=== PATIENT | female | born 1960 | race African-American/Black ===

== ENCOUNTER 2017-04-22 13:30 | Inpatient (IN) | payer MEDICAID ==
[~2017-04-22] VITALS: Ht 167.6 cm; Wt 73.2 kg
[~2017-04-22 13:30] MED LIST: LITH150C PO
[2017-04-22 14:52] LABS: BASOPHILS % 0.4 % (0.0-2.0); EOSINOPHILS % 1.2 % (0.0-5.0); HEMATOCRIT. 38.7 % (36.0-48.0); LYMPHOCYTES % 21.7 % (20.0-50.0); MEAN CORPUSCULAR HEMOGLOBIN 29.9 pg (28.0-32.0); MEAN CORPUSCULAR VOLUME 96.5 fL (81.0-99.0); MEAN PLATELET VOLUME 7.7 fl (7.4-10.4); MONOCYTES % 5.8 % (2.0-8.0); NEUTROPHILS % 70.9 % (40.0-76.0); PLATELET 264 x1000/uL (130-400); RED BLOOD CELL COUNT 4.01 mill/uL (4.2-5.4); RED CELL DISTRIBUTION WIDTH 13.7 % (11.6-14.6)
[2017-04-22 14:56] LABS: PROTHROMBIN TIME 10.8 sec (9.4-11.6)
[2017-04-22 15:04] LABS: CARBON DIOXIDE 36 mEq/L (21-32); CHLORIDE 102 mEq/L (98-107); TROPONIN I < 0.02 ng/mL (0.00-0.04)
[2017-04-22 15:54] LABS: BG BASE EXCESS 4.1 mmol/L (-2.0-2.0); BG CARBOXYHEMOGLOBIN 0.5 % (0.5-1.5); BG DEOXYHEMOGLOBIN 1.9 % (0.0-5.0); BG FRACTION INSPIRED OXYGEN 40; BG HCO3 ACT 32.3 mmol/L (22.0-26.0); BG METHEMOGLOBIN 0.2 % (0.0-1.5); BG OXYGEN SATURATION 98.1 % (92.0-98.5); BG OXYHEMOGLOBIN 97.4 % (94.0-97.0); BG PCO2 66.8 mmHg (35.0-45.0); BG PH 7.302 (7.350-7.450); BG PO2 113.8 mmHg (75.0-100.0); BG SAMPLE SITE RIGHT BRACHIAL; BG TOTAL HEMOGLOBIN 12.3 g/dL (12.0-18.0); BG VENT MODE NASAL CANNULA
[2017-04-22] MEDS ORDERED: METHYLPREDNISOLONE SOD SUCC 125 MG/2 ML VIAL IV ONE (18:15)
[2017-04-22] MEDS ORDERED: ACYCLOVIR 400 MG TABLET PO ONE (19:15)
[2017-04-22] MEDS ORDERED: DIPH50CA38 PO (20:35)
[2017-04-22] MEDS ORDERED: OLAN10TA19 PO (20:36)
[2017-04-22] MEDS ORDERED: CLONIDINE 0.1MG TABLET PO PRN (22:30)
[2017-04-22] MEDS ORDERED: IPRATROPIUM/ALBUTEROL 0.5-3(2.5)MG/3ML NEB INH PRN (22:30)
[2017-04-22] MEDS ORDERED: DOCUSATE SODIUM 100MG CAPSULE PO PRN (22:30)
[2017-04-22] MEDS ORDERED: ONDANSETRON HCL 4MG/2ML VIAL IV PRN (22:30)
[2017-04-22] MEDS ORDERED: MAGNESIUM/ALUMINUM HYDROXIDE/SIMETHICONE 30ML UDC PO PRN (22:30)
[2017-04-22] MEDS ORDERED: ACETAMINOPHEN 325MG TABLET PO PRN (22:30)
[2017-04-23] VITALS (13 sets, daily range): BP systolic 111–162; BP diastolic 68–100
[2017-04-23 00:06] LABS: CHLORIDE 106 mEq/L (98-107)
[2017-04-23 00:12] LABS: CARBON DIOXIDE 35 mEq/L (21-32)
[2017-04-23] MEDS ORDERED: METHYLPREDNISOLONE SOD SUCC 40 MG/ML VIAL IV SCH (06:00)
[2017-04-23 06:48] LABS: HEMATOCRIT. 35.5 % (36.0-48.0); HEMOGLOBIN. 11.4 g/dL (12.0-16.0); MEAN CORPUSCULAR HEMOGLOBIN 30.8 pg (28.0-32.0); MEAN CORPUSCULAR VOLUME 95.9 fL (81.0-99.0); MEAN PLATELET VOLUME 8.1 fl (7.4-10.4); PLATELET 239 x1000/uL (130-400); RED CELL DISTRIBUTION WIDTH 13.9 % (11.6-14.6)
[2017-04-23] MEDS: OMEPRAZOLE 20MG CAPSULE EXTENDED RELEASE PO SCH (06:53)
[2017-04-23] MEDS: VALACYCLOVIR HCL 500MG TABLET PO SCH ×3 (06:54→21:14)
[2017-04-23 07:38] LABS: CREATINE KINASE 27 IU/L (26-192); CREATINE KINASE MB FRACTION < 0.5 ng/mL (0.5-3.6); HDL CHOLESTEROL 86 mg/dL (40-59); LDL CHOLESTEROL 116 mg/dL (5-100); TROPONIN I < 0.02 ng/mL (0.00-0.04)
[2017-04-23 08:18] LABS: CLARITY URINE CLEAR (CLEAR); COLOR URINE YELLOW (YELLOW); KETONES URINE NEGATIVE (NEGATIVE); LEUKOCYTE ESTERASE URINE NEGATIVE (NEGATIVE); NITRITE URINE NEGATIVE (NEGATIVE); OCCULT BLOOD URINE NEGATIVE (NEGATIVE); PH URINE 7.5 (4.5-8.0); PROTEIN URINE NEGATIVE (NEGATIVE); SPECIFIC GRAVITY URINE 1.009 (1.005-1.030); UROBILINOGEN URINE 0.2 E.U./dL (0.2-1.0)
[2017-04-23] MEDS: ENOXAPARIN 40MG/0.4ML SYR SUBCUT SCH (08:57)
[2017-04-23 09:20] LABS: BG BASE EXCESS 1.2 mmol/L (-2.0-2.0); BG CARBOXYHEMOGLOBIN 0.5 % (0.5-1.5); BG DEOXYHEMOGLOBIN 4.9 % (0.0-5.0); BG FRACTION INSPIRED OXYGEN 32; BG HCO3 ACT 30.1 mmol/L (22.0-26.0); BG METHEMOGLOBIN 0.3 % (0.0-1.5); BG OXYGEN SATURATION 95.1 % (92.0-98.5); BG OXYHEMOGLOBIN 94.3 % (94.0-97.0); BG PCO2 70.2 mmHg (35.0-45.0); BG PO2 79.6 mmHg (75.0-100.0); BG SAMPLE SITE LEFT BRACHIAL; BG TOTAL HEMOGLOBIN 12.3 g/dL (12.0-18.0); BG VENT MODE NASAL CANNULA
[2017-04-23 10:39] LABS: *AMPHETAMINES SCREEN URINE NEGATIVE (NEGATIVE); *BARBITURATES SCREEN URINE NEGATIVE (NEGATIVE); *BENZODIAZEPINES SCREEN URINE NEGATIVE (NEGATIVE); *COCAINE SCREEN URINE NEGATIVE (NEGATIVE); CANNABINOID URINE SCREEN NEGATIVE (NEGATIVE); METHADONE URINE SCREEN NEGATIVE (NEGATIVE); OPIATES URINE SCREEN NEGATIVE (NEGATIVE); PHENCYCLIDINE URINE SCREEN NEGATIVE (NEGATIVE)
[2017-04-23] MEDS: METHYLPREDNISOLONE SOD SUCC 125 MG/2 ML VIAL IV SCH ×3 (11:06→22:39)
[2017-04-23] MEDS: IPRATROPIUM/ALBUTEROL 0.5-3(2.5)MG/3ML NEB HHN SCH ×4 (13:45→23:42)
[2017-04-23] MEDS: BUDESONIDE 0.5MG/2ML NEB HHN SCH ×2 (13:45→21:30)
[2017-04-23 17:58] LABS: CREATINE KINASE 27 IU/L (26-192); CREATINE KINASE MB FRACTION 0.6 ng/mL (0.5-3.6); TROPONIN I < 0.02 ng/mL (0.00-0.04)
[2017-04-23] MEDS ORDERED: POLYVINYL ALCOHOL OPHTH DROPS 15ML LEFTEYE PRN (18:00)
[2017-04-23] MEDS ORDERED: DIPHENHYDRAMINE 50MG CAPSULE PO PRN (20:00)
[2017-04-23] MEDS ORDERED: ATORVASTATIN CALCIUM 10MG TABLET PO SCH (21:00)
[2017-04-23] MEDS: LITHIUM CARBONATE 150 MG CAPSULE PO SCH (21:00)
[2017-04-23] MEDS ORDERED: ERYTHROMYCIN BASE 0.5% OPHTH OINT 3.5GM LEFTEYE SCH (21:00)
[2017-04-23] MEDS ORDERED: OLANZAPINE 10MG TABLET PO SCH (21:00)
[2017-04-23 21:06] LABS: ATYPICAL LYMPHOCYTES 1; PLATELET ESTIMATE NORMAL
[2017-04-24] VITALS (9 sets, daily range): BP systolic 107–153; BP diastolic 69–91
[2017-04-24] MEDS: IPRATROPIUM/ALBUTEROL 0.5-3(2.5)MG/3ML NEB HHN SCH ×4 (04:00→16:00)
[2017-04-24] MEDS: OMEPRAZOLE 20MG CAPSULE EXTENDED RELEASE PO SCH (06:01)
[2017-04-24] MEDS: METHYLPREDNISOLONE SOD SUCC 125 MG/2 ML VIAL IV SCH ×2 (06:01→11:37)
[2017-04-24] MEDS: VALACYCLOVIR HCL 500MG TABLET PO SCH ×2 (06:41→13:47)
[2017-04-24] MEDS: LITHIUM CARBONATE 150 MG CAPSULE PO SCH ×2 (08:15→13:47)
[2017-04-24] MEDS: ENOXAPARIN 40MG/0.4ML SYR SUBCUT SCH (08:17)
[2017-04-24 08:35] LABS: BG BASE EXCESS 5.1 mmol/L (-2.0-2.0); BG CARBOXYHEMOGLOBIN 0.3 % (0.5-1.5); BG DEOXYHEMOGLOBIN 7.8 % (0.0-5.0); BG FRACTION INSPIRED OXYGEN 24; BG HCO3 ACT 31.6 mmol/L (22.0-26.0); BG METHEMOGLOBIN 0.1 % (0.0-1.5); BG OXYGEN SATURATION 92.2 % (92.0-98.5); BG OXYHEMOGLOBIN 91.8 % (94.0-97.0); BG PCO2 56.1 mmHg (35.0-45.0); BG PH 7.369 (7.350-7.450); BG SAMPLE SITE RIGHT RADIAL; BG TOTAL HEMOGLOBIN 11.4 g/dL (12.0-18.0); BG VENT MODE NASAL CANNULA
[2017-04-24] MEDS: BUDESONIDE 0.5MG/2ML NEB HHN SCH (08:42)
== END 2017-04-24 15:35 | disposition home or self-care (01) | DRG 140 ==
LOC: ER 13:47 → 3WST 19:03 → ENRESERV 23:07
PROVIDERS: ADMIT Internal Medicine; ATTEND Internal Medicine
PROC: 5A09357 Assistance with Respiratory Ventilation, Less than 24 Consecutive Hours, Continuous Positive Airway Pressure (ICD-10-PCS; principal; 2017-04-23)
DX: J44.1 Chronic obstructive pulmonary disease with (acute) exacerbation (principal); J96.02 Acute respiratory failure with hypercapnia; F03.90 Unspecified dementia, unspecified severity, without behavioral disturbance, psychotic disturbance, mood disturbance, and anxiety; I50.30 Unspecified diastolic (congestive) heart failure; I11.0 Hypertensive heart disease with heart failure; E87.2 Acidosis; G51.0 Bell's palsy; E78.5 Hyperlipidemia, unspecified; Z87.891 Personal history of nicotine dependence; Z79.899 Other long term (current) drug therapy
CPT/HCPCS: 36415; 36600; 70450; 71045; 80048; 80053; 80061; 80178; 80305; 81003; 82375; 82550; 82553; 82805; 83735; 83880; 84443; 84484; 85025; 85610; 93005; 94640; 96374; 97162; 97165; 99291; A6261; J1650; J2920; J2930; J7620; J7626

== ENCOUNTER 2019-11-04 12:16 | Inpatient (IN) | payer MEDICAID ==
[~2019-11-04] VITALS: Ht 167.6 cm; Wt 61.2 kg
[~2019-11-04 12:16] MED LIST changes: +DIPH50CA38 PO; +OLAN10TA19 PO
[2019-11-04] MEDS ORDERED: ALBUTEROL (0.083%) 2.5MG/3ML NEB HHN STA (12:59)
[2019-11-04] MEDS ORDERED: METHYLPREDNISOLONE SOD SUCC 125 MG/2 ML VIAL IV STA (12:59)
[2019-11-04] MEDS ORDERED: SODIUM CHLORIDE 0.9% 1,000 ML IV ONE (12:59)
[2019-11-04] MEDS ORDERED: IPRATROPIUM BROMIDE (0.02%) 0.5MG/2.5ML NEB HHN STA (12:59)
[2019-11-04 13:43] LABS: HEMOGLOBIN. 11.1 g/dL (12.0-16.0); MEAN CORPUSCULAR HEMOGLOBIN 31.3 pg (28.0-32.0); MEAN CORPUSCULAR VOLUME 98.6 fL (81.0-99.0); MEAN PLATELET VOLUME 8.1 fl (7.4-10.4); PLATELET 190 x1000/uL (130-400); RED BLOOD CELL COUNT 3.55 mill/uL (4.2-5.4); RED CELL DISTRIBUTION WIDTH 13.3 % (11.6-14.6)
[2019-11-04 13:50] LABS: CHLORIDE 99 mEq/L (98-107)
[2019-11-04 14:12] LABS: PLATELET ESTIMATE NORMAL
[2019-11-04 20:53] VITALS: BP 110/59
[2019-11-05] VITALS: BP 124/76
[2019-11-05] MEDS ORDERED: LITH300C3 PO (02:49)
[2019-11-05] MEDS ORDERED: ACETAMINOPHEN 325MG TABLET PO PRN (03:00)
[2019-11-05 04:00] VITALS: BP 123/63
[2019-11-05] MEDS: METHYLPREDNISOLONE SOD SUCC 40 MG/ML VIAL IV SCH ×3 (04:49→21:08)
[2019-11-05] MEDS: ALBUTEROL (0.083%) 2.5MG/3ML NEB HHN SCH ×3 (06:00→18:00)
[2019-11-05 06:24] LABS: CHLORIDE 100 mEq/L (98-107)
[2019-11-05 06:32] LABS: BASOPHILS % 0.1 % (0.0-2.0); EOSINOPHILS % 0.1 % (0.0-5.0); HEMATOCRIT. 34.6 % (36.0-48.0); HEMOGLOBIN. 11.1 g/dL (12.0-16.0); LYMPHOCYTES % 13.1 % (20.0-50.0); MEAN CORPUSCULAR HEMOGLOBIN 31.3 pg (28.0-32.0); MEAN CORPUSCULAR VOLUME 97.6 fL (81.0-99.0); MEAN PLATELET VOLUME 8.4 fl (7.4-10.4); MONOCYTES % 7.8 % (2.0-8.0); NEUTROPHILS % 78.9 % (40.0-76.0); PLATELET 209 x1000/uL (130-400); RED BLOOD CELL COUNT 3.54 mill/uL (4.2-5.4); RED CELL DISTRIBUTION WIDTH 13.1 % (11.6-14.6)
[2019-11-05 08:00] VITALS: BP 97/71
[2019-11-05] MEDS ORDERED: NON FORMULARY PATIENT HOME MED XX SCH (09:00)
[2019-11-05] MEDS: OLANZAPINE 10MG TABLET PO SCH (09:31)
[2019-11-05] MEDS: DIPHENHYDRAMINE 50MG CAPSULE PO SCH (09:32)
[2019-11-05] MEDS: LITHIUM CARBONATE 150 MG CAPSULE PO SCH ×3 (09:32→16:56)
[2019-11-05] MEDS: ENOXAPARIN 40MG/0.4ML SYR SUBCUT SCH (09:32)
[2019-11-05 12:00] VITALS: BP 122/72
[2019-11-05] MEDS: IPRATROPIUM/ALBUTEROL 0.5-3(2.5)MG/3ML NEB HHN SCH ×4 (14:35→20:00)
[2019-11-05 16:00] VITALS: BP_SYST 109; BP_SYST 124; BP_SYST 141; BP_DIAS 58; BP_DIAS 59; BP_DIAS 60
[2019-11-05] MEDS: MONTELUKAST SODIUM 10MG TABLET PO SCH (16:53)
[2019-11-05] MEDS: BUDESONIDE 0.5MG/2ML NEB HHN SCH ×2 (17:00→19:58)
[2019-11-05 20:00] VITALS: BP_SYST 106; BP_SYST 123; BP_SYST 124; BP_SYST 126; BP_DIAS 45; BP_DIAS 66; BP_DIAS 69; BP_DIAS 75
[2019-11-06] VITALS: BP 121/68
[2019-11-06] MEDS: ALBUTEROL (0.083%) 2.5MG/3ML NEB HHN SCH
[2019-11-06] MEDS: IPRATROPIUM/ALBUTEROL 0.5-3(2.5)MG/3ML NEB HHN SCH ×6 (01:05→16:08)
[2019-11-06 02:02] LABS: CLARITY URINE CLOUDY (CLEAR); COLOR URINE YELLOW (YELLOW); KETONES URINE NEGATIVE (NEGATIVE); LEUKOCYTE ESTERASE URINE 1+ (NEGATIVE); NITRITE URINE POSITIVE (NEGATIVE); OCCULT BLOOD URINE NEGATIVE (NEGATIVE); PH URINE 7.5 (4.5-8.0); PROTEIN URINE NEGATIVE (NEGATIVE); SPECIFIC GRAVITY URINE 1.014 (1.005-1.030)
[2019-11-06 02:14] LABS: *AMPHETAMINES SCREEN URINE NEGATIVE (NEGATIVE); *BARBITURATES SCREEN URINE NEGATIVE (NEGATIVE); *BENZODIAZEPINES SCREEN URINE NEGATIVE (NEGATIVE); *COCAINE SCREEN URINE NEGATIVE (NEGATIVE); CANNABINOID URINE SCREEN NEGATIVE (NEGATIVE); METHADONE URINE SCREEN NEGATIVE (NEGATIVE); OPIATES URINE SCREEN NEGATIVE (NEGATIVE); PHENCYCLIDINE URINE SCREEN NEGATIVE (NEGATIVE)
[2019-11-06 04:00] VITALS: BP 126/65
[2019-11-06] MEDS: METHYLPREDNISOLONE SOD SUCC 40 MG/ML VIAL IV SCH ×2 (05:49→14:10)
[2019-11-06 08:00] VITALS: BP 106/50
[2019-11-06] MEDS: BUDESONIDE 0.5MG/2ML NEB HHN SCH (09:02)
[2019-11-06] MEDS: OLANZAPINE 10MG TABLET PO SCH (09:07)
[2019-11-06] MEDS: ENOXAPARIN 40MG/0.4ML SYR SUBCUT SCH (09:07)
[2019-11-06] MEDS: LITHIUM CARBONATE 150 MG CAPSULE PO SCH ×3 (09:08→17:53)
[2019-11-06] MEDS: DIPHENHYDRAMINE 50MG CAPSULE PO SCH (09:08)
[2019-11-06] MEDS ORDERED: CEFTRIAXONE 1,000 MG in DEXTROSE 5% WATER 50 ML IV SCH (10:00)
[2019-11-06 12:00] VITALS: BP 106/54
[2019-11-06 16:00] VITALS: BP 116/66
[2019-11-06] MEDS ORDERED: LEVO500T2 MT (16:24)
[2019-11-06] MEDS ORDERED: ALBU18HF2 IH (16:24)
[2019-11-06] MEDS ORDERED: P20 MT (16:24)
[2019-11-06] MEDS: MONTELUKAST SODIUM 10MG TABLET PO SCH (17:53)
[2019-11-06 18:25] VITALS: BP 116/66
== END 2019-11-06 19:00 | disposition home or self-care (01) | DRG 48 ==
LOC: ER 12:16 → EDBEDREQ 15:10 → ENRESERV 19:50 → 5WST 20:43
PROVIDERS: ADMIT Internal Medicine; ATTEND Internal Medicine
DX: G90.8 Other disorders of autonomic nervous system (principal); J96.20 Acute and chronic respiratory failure, unspecified whether with hypoxia or hypercapnia; J44.1 Chronic obstructive pulmonary disease with (acute) exacerbation; D64.9 Anemia, unspecified; I11.9 Hypertensive heart disease without heart failure; E44.1 Mild protein-calorie malnutrition; Z99.81 Dependence on supplemental oxygen; Z87.891 Personal history of nicotine dependence; Z68.21 Body mass index [BMI] 21.0-21.9, adult; Z79.899 Other long term (current) drug therapy
CPT/HCPCS: 36415; 71045; 80048; 80053; 80305; 81003; 83880; 84484; 85025; 93005; 93306; 93880; 94640; 96374; 97162; 97535; 99291; J0696; J1650; J2920; J2930; J7030; J7060; J7626; Q0163

== ENCOUNTER 2020-11-18 12:03 | Inpatient (IN) | payer MEDICAID ==
[~2020-11-18] VITALS: Ht 162.6 cm; Wt 68.2 kg
[~2020-11-18 12:03] MED LIST changes: +ALBU18HF2 IH; +LEVO500T2 MT; -LITH150C PO; +LITH300C3 PO; +P20 MT
[2020-11-18 12:32] LABS: BASOPHILS % 0.5 % (0.0-2.0); EOSINOPHILS % 0.3 % (0.0-5.0); HEMATOCRIT. 35.7 % (36.0-48.0); HEMOGLOBIN. 11.4 g/dL (12.0-16.0); LYMPHOCYTES % 15.5 % (20.0-50.0); MEAN CORPUSCULAR HEMOGLOBIN 31.4 pg (28.0-32.0); MEAN CORPUSCULAR VOLUME 98.4 fL (81.0-99.0); MEAN PLATELET VOLUME 8.7 fl (7.4-10.4); MONOCYTES % 8.8 % (2.0-8.0); NEUTROPHILS % 74.9 % (40.0-76.0); PLATELET 166 x1000/uL (130-400); RED BLOOD CELL COUNT 3.63 mill/uL (4.2-5.4); RED CELL DISTRIBUTION WIDTH 13.7 % (11.6-14.6)
[2020-11-18 12:36] LABS: CHLORIDE 103 mEq/L (98-107)
[2020-11-18 12:45] LABS: CREATINE KINASE 76 IU/L (26-192)
[2020-11-18 13:05] LABS: BG BASE EXCESS 7.8 mmol/L (-2.0-2.0); BG CARBOXYHEMOGLOBIN 0.6 % (0.5-1.5); BG DEOXYHEMOGLOBIN 5.9 % (0.0-5.0); BG FRACTION INSPIRED OXYGEN 36; BG HCO3 ACT 36.1 mmol/L (22.0-26.0); BG METHEMOGLOBIN 0.1 % (0.0-1.5); BG OXYGEN SATURATION 94.1 % (92.0-98.5); BG OXYHEMOGLOBIN 93.4 % (94.0-97.0); BG PCO2 70.7 mmHg (35.0-45.0); BG PH 7.326 (7.350-7.450); BG PO2 69.7 mmHg (75.0-100.0); BG SAMPLE SITE RIGHT RADIAL; BG TOTAL HEMOGLOBIN 12.3 g/dL (12.0-18.0); BG VENT MODE NASAL CANNULA
[2020-11-18] MEDS ORDERED: ALBUTEROL 6.7GM HFA INHALER ORI NR (16:00)
[2020-11-18 19:19] LABS: CLARITY URINE CLEAR (CLEAR); COLOR URINE YELLOW (YELLOW); KETONES URINE NEGATIVE (NEGATIVE); LEUKOCYTE ESTERASE URINE NEGATIVE (NEGATIVE); NITRITE URINE POSITIVE (NEGATIVE); OCCULT BLOOD URINE NEGATIVE (NEGATIVE); PROTEIN URINE 1+ (NEGATIVE); SPECIFIC GRAVITY URINE 1.018 (1.005-1.030)
[2020-11-18] MEDS ORDERED: AZITHROMYCIN 500 MG in DEXT 5% WATER 250 ML IV SCH (20:00)
[2020-11-18] MEDS ORDERED: CEFTRIAXONE 1 G PREMIX 50 ML IV SCH (20:00)
[2020-11-18] MEDS ORDERED: DEXAMETHASONE 10 MG/ML VIAL IV SCH (20:00)
[2020-11-18 22:15] LABS: BG BASE EXCESS 8.2 mmol/L (-2.0-2.0); BG CARBOXYHEMOGLOBIN 0.8 % (0.5-1.5); BG FRACTION INSPIRED OXYGEN 50; BG HCO3 ACT 37.6 mmol/L (22.0-26.0); BG METHEMOGLOBIN 0.2 % (0.0-1.5); BG PH 7.284 (7.350-7.450); BG PO2 84.3 mmHg (75.0-100.0); BG SAMPLE SITE RIGHT RADIAL; BG TOTAL HEMOGLOBIN 12.1 g/dL (12.0-18.0); BG VENT MODE MASK - BIPAP
[2020-11-19] MEDS: METHYLPREDNISOLONE SOD SUCC 40 MG/ML VIAL IV SCH ×2 (09:32→18:12)
[2020-11-19] MEDS: FAMOTIDINE 20MG TABLET PO SCH ×2 (09:32→20:51)
[2020-11-19] MEDS: ENOXAPARIN 40MG/0.4ML SYR SUBCUT SCH (10:20)
[2020-11-19 12:00] VITALS: BP 133/79
[2020-11-19 15:43] VITALS: BP 133/79
[2020-11-19] MEDS ORDERED: [UNRECOGNIZED DRUG - OTHER] (16:00)
[2020-11-19] MEDS ORDERED: DIPH50CA38 MT (16:00)
[2020-11-19 16:04] VITALS: BP 120/86
[2020-11-19 20:00] VITALS: BP 125/75
[2020-11-19] MEDS: ALBUTEROL 6.7GM HFA INHALER ORI SCH ×2 (20:00→20:51)
[2020-11-20 00:01] VITALS: BP 101/65
[2020-11-20] MEDS: METHYLPREDNISOLONE SOD SUCC 40 MG/ML VIAL IV SCH ×3 (02:51→16:51)
[2020-11-20 04:00] VITALS: BP 99/53
[2020-11-20] MEDS: ALBUTEROL 6.7GM HFA INHALER ORI SCH ×5 (04:00→16:00)
[2020-11-20 08:00] VITALS: BP 129/76
[2020-11-20] MEDS: ENOXAPARIN 40MG/0.4ML SYR SUBCUT SCH (08:57)
[2020-11-20] MEDS: FAMOTIDINE 20MG TABLET PO SCH (08:57)
[2020-11-20 10:04] LABS: BG BASE EXCESS 6.1 mmol/L (-2.0-2.0); BG CARBOXYHEMOGLOBIN 0.7 % (0.5-1.5); BG DEOXYHEMOGLOBIN 5.7 % (0.0-5.0); BG FRACTION INSPIRED OXYGEN 32; BG HCO3 ACT 35.1 mmol/L (22.0-26.0); BG METHEMOGLOBIN 0.1 % (0.0-1.5); BG OXYGEN SATURATION 94.3 % (92.0-98.5); BG OXYHEMOGLOBIN 93.5 % (94.0-97.0); BG PH 7.294 (7.350-7.450); BG SAMPLE SITE RIGHT BRACHIAL; BG TOTAL HEMOGLOBIN 13.2 g/dL (12.0-18.0); BG VENT MODE NASAL CANNULA
[2020-11-20 12:00] VITALS: BP 119/74
[2020-11-20] MEDS ORDERED: P20 MT (12:20)
[2020-11-20 15:02] VITALS: BP 119/74
[2020-11-20] MEDS ORDERED: LEVO500T89 MT (15:29)
[2020-11-20] MEDS ORDERED: AZITHROMYCIN 500 MG TABLET PO SCH (20:00)
[2020-11-20] MEDS ORDERED: CEFTRIAXONE 1,000 MG in DEXTROSE 5% WATER 50 ML IV SCH (20:00)
== END 2020-11-20 16:30 | disposition home or self-care (01) | DRG 720 ==
LOC: ER 12:03 → EDBEDREQ 16:18 → EDBEDREQTM 20:03 → EDBEDREQSVC 20:03 → MICUSO 23:05 → 7WST 11-19 11:29
PROVIDERS: ADMIT Internal Medicine; ATTEND Internal Medicine
PROC: 5A09457 Assistance with Respiratory Ventilation, 24-96 Consecutive Hours, Continuous Positive Airway Pressure (ICD-10-PCS; principal; 2020-11-18)
DX: A41.89 Other specified sepsis (principal); J96.21 Acute and chronic respiratory failure with hypoxia; J12.82 Pneumonia due to coronavirus disease 2019; U07.1 COVID-19; E44.1 Mild protein-calorie malnutrition; J44.0 Chronic obstructive pulmonary disease with (acute) lower respiratory infection; I11.0 Hypertensive heart disease with heart failure; I50.40 Unspecified combined systolic (congestive) and diastolic (congestive) heart failure; E87.2 Acidosis; J44.1 Chronic obstructive pulmonary disease with (acute) exacerbation; J96.22 Acute and chronic respiratory failure with hypercapnia; D64.9 Anemia, unspecified; N39.0 Urinary tract infection, site not specified; I27.20 Pulmonary hypertension, unspecified; D72.810 Lymphocytopenia; D72.821 Monocytosis (symptomatic); E11.9 Type 2 diabetes mellitus without complications; Z87.01 Personal history of pneumonia (recurrent); Z79.2 Long term (current) use of antibiotics; Z79.899 Other long term (current) drug therapy; Z87.891 Personal history of nicotine dependence; Z68.25 Body mass index [BMI] 25.0-25.9, adult; Z99.81 Dependence on supplemental oxygen
CPT/HCPCS: 36415; 36600; 71045; 80053; 81003; 82375; 82550; 82728; 82805; 83605; 83615; 83880; 84145; 84484; 85025; 85384; 86140; 87077; 87186; 87426; 93005; 93970; 94640; 94660; 99291; J0456; J0696; J1100; J1650; J2920; J7060; U0003; U0005